=== PATIENT | male | born 1985 | race Caucasian/White ===

== ENCOUNTER 2019-06-05 14:47 | Emergency (ER) | payer OTHER ==
[~2019-06-05] VITALS: Ht 167.6 cm; Wt 64.9 kg
[2019-06-05] MEDS ORDERED: IV NORMAL SALINE 1,000ML 1,000 ML IV SCH (15:01)
--- NOTE | 2019-06-05 15:14 | PHYS DOC ---
Past History Past Medical History: No Pertinent History Past Surgical History: No Surgical History Alcohol Use: Occasionally Drug Use: None Adult General Chief Complaint Chief Complaint: HEADACHE HPI HPI Patient is a 34-year-old male who presents with complaint of headache that started at about 11:00 this morning. Patient states that pain rapidly worsened and he developed a few episodes of vomiting. He denies any visual changes but does complain of photophobia. Patient states that headache is worsened with movements. He states that nothing is improving the headache. He rates pain as severe. He describes it as a severe ache in his frontal and bilateral temporal region.[] Review of Systems Review of Systems Constitutional: Denies fever or chills [] Eyes: Denies change in visual acuity, redness, or eye pain [] Respiratory: Denies cough or shortness of breath [] Cardiovascular: No additional information not addressed in HPI [] Musculoskeletal: Denies back pain or joint pain [] Neurologic: Complains of headache without focal weakness or sensory changes [] All other systems were reviewed and found to be within normal limits, except as documented in this note. Current Medications Current Medications Current Medications Medications (Trade) Dose Ordered Sig/Álvaro Start Time Stop Time Status Last Admin Dose Admin Diphenhydramine HCl (Benadryl) 25 mg 1X ONCE 06/05/19 15:30 06/05/19 15:31 Fentanyl Citrate (Fentanyl 2ml Vial) 50 mcg 1X ONCE 06/05/19 15:30 06/05/19 15:31 Ketorolac Tromethamine (Toradol 30mg Vial) 30 mg 1X ONCE 06/05/19 15:30 06/05/19 15:31 Metoclopramide HCl (Reglan Vial) 10 mg 1X ONCE 06/05/19 15:30 06/05/19 15:31 Sodium Chloride 1,000 ml @ 1,000 mls/hr Q1H 06/05/19 15:01 06/05/19 16:00 Sumatriptan Succinate (Imitrex) 6 mg 1X ONCE 06/05/19 15:30 06/05/19 15:31 Allergies Allergies Allergies Coded Allergies Type Severity Reaction Last Updated Verified No Known Drug Allergies 06/05/19 No Physical Exam Physical Exam Constitutional: Well developed, well nourished, in mild distress, non-toxic appearance. [] HENT: Normocephalic, atraumatic, bilateral external ears normal, oropharynx moist, no oral exudates, nose normal. [] Eyes: PERRLA, EOMI, conjunctiva normal, no discharge. [] Neck: Normal range of motion, no tenderness, supple, no stridor. [] Cardiovascular:Heart rate regular rhythm, no murmur [] Lungs & Thorax: Bilateral breath sounds clear to auscultation [] Abdomen: Bowel sounds normal, soft, no tenderness. [] Skin: Warm, dry, no erythema, no rash. [] Extremities: No tenderness, no cyanosis, no clubbing, ROM intact, no edema. [] Neurologic: Alert and oriented X 3, normal motor function, normal sensory fun ction, no focal deficits noted. [] Current Patient Data Vital Signs Vital Signs Date Time Temp Pulse Resp B/P (MAP) Pulse Ox O2 Delivery O2 Flow Rate FiO2 06/05/19 15:05 97.8 60 16 100 Room Air EKG EKG [] Radiology/Procedures Radiology/Procedures [] Course & Med Decision Making Course & Med Decision Making Pertinent Labs and Imaging studies reviewed. (See chart for details) Patient moved to room upon arrival was evaluated by your medical staff after which an IV was established and blood work drawn. A migraine cocktail was given to patient and patient reevaluated at 4:20 PM. Patient indicates that headache is pretty much gone at this time. Dragon Disclaimer Dragon Disclaimer This electronic medical record was generated, in whole or in part, using a voice recognition dictation system. Departure Departure: Impression: Primary Impression: Migraine headache Disposition: 01 HOME, SELF-CARE Condition: STABLE Referrals: PCP,NO (PCP) Patient Instructions: Migraine Headache Scripts Ondansetron Hcl (ZOFRAN) 4 Mg Tablet 4 MG PO Q6HRS PRN for NAUSEA, #12 TAB Prov: TATUM DOMINGUEZ Jr. DO 06/05/19 Sumatriptan Succinate (IMITREX) 100 Mg Tablet 1 TAB PO UD PRN for HEADACHE, #9 TAB Prov: TATUM DOMINGUEZ Jr. DO 06/05/19 Problem Qualifiers Primary Impression: Migraine headache Migraine type: without aura Status migrainosus presence: without status migrainosus Intractability: not intractable Qualified Codes: G43.009 - Migraine without aura, not intractable, without status migrainosus TATUM DOMINGUEZ Jr. DO Jun 05, 2019 15:14
[2019-06-05] MEDS ORDERED: ONDANSETRON PF 4 MG/2 ML VIAL. ONE (15:18)
[2019-06-05 15:23] LABS: CALCIUM 10.1 mg/dL (8.5-10.1); CREATININE 0.9 mg/dL (0.7-1.3); GFR 96.6; POTASSIUM 3.9 mmol/L (3.5-5.1)
[2019-06-05] MEDS ORDERED: METOCLOPRAMIDE HCL 10 MG/2 ML VIAL. IV ONE (15:30)
[2019-06-05] MEDS ORDERED: diphenhydrAMINE 50 MG/ML VIAL IVP ONE (15:30)
[2019-06-05] MEDS ORDERED: KETOROLAC 30 MG/ML VIAL. IV ONE (15:30)
[2019-06-05] MEDS ORDERED: SUMAtriptan SUCC 6 MG/0.5 ML VIAL SQ ONE (15:30)
[2019-06-05 15:37] LABS: BASO # 0.1 x10^3/uL (0.0-0.2); BASO % 1 % (0-3); EOS % 0 % (0-3); HEMOGLOBIN 15.8 g/dL (13.0-17.5); LYMPH # 1.6 x10^3/uL (1.0-4.8); LYMPH % 15 % (24-48); MEAN CORPUSCULAR HEMOGLOBIN 31 pg (25-35); MEAN CORPUSCULAR HGB CONC 34 g/dL (31-37); MEAN CORPUSCULAR VOLUME 93 fL (79-100); MONO # 0.5 x10^3/uL (0.0-1.1); MONO % 5 % (0-9); NEUT # 8.2 x10^3uL (1.8-7.7); NEUT % 79 % (31-73); PLATELET COUNT 273 x10^3/uL (140-400); RED BLOOD COUNT 5.06 x10^6/uL (4.30-5.70); RED CELL DISTRIBUTION WIDTH 13.7 % (11.5-14.5); WHITE BLOOD COUNT 10.3 x10^3/uL (4.0-11.0)
[2019-06-05] MEDS ORDERED: SUMA100T3 PO (16:27)
[2019-06-05] MEDS ORDERED: ONDA4TAB7 PO (16:27)
[2019-06-05 16:37] VITALS: BP 139/86
== END 2019-06-05 16:43 | disposition home or self-care (01) ==
LOC: ER 14:47
DX: G43.009 Migraine without aura, not intractable, without status migrainosus (principal); R11.11 Vomiting without nausea
CPT/HCPCS: 36415; 80048; 85025; 96361; 96372; 96374; 96375; 99284; J1200; J1885; J2765; J3010; J3030; J7030

== ENCOUNTER 2019-08-29 12:51 | Emergency (ER) | payer OTHER ==
[~2019-08-29 12:51] MED LIST: ONDA4TAB7 PO; SUMA100T3 PO
[2019-08-29 13:08] VITALS: BP 142/94
--- NOTE | 2019-08-29 13:34 | PHYS DOC ---
Past History Past Medical History: No Pertinent History Past Surgical History: No Surgical History Alcohol Use: None Drug Use: None Adult General Chief Complaint Chief Complaint: LOWER EXT PAIN HPI HPI Patient is a 34-year-old male complains of left thigh pain. Patient was in [place] [employer] [place] over the weekend, fell, increasing bruising, increasing pain and stiffness. No new trauma. No numbness or tingling. No relief with previous treatment to include NSAIDs and oral steroids. Patient reports the pain is mild to moderate in intensity. No difficulty breathing. No lower leg swelling.[] Review of Systems Review of Systems Constitutional: Denies fever or chills [] Eyes: Denies change in visual acuity, redness, or eye pain [] HENT: Denies nasal congestion or sore throat [] Respiratory: Denies cough or shortness of breath [] Cardiovascular: No chest pain or palpitations[] GI: Denies abdominal pain, nausea, vomiting, bloody stools or diarrhea [] : Denies dysuria or hematuria [] Musculoskeletal: Denies back pain, see history of present illness[] Integument: Denies rash or skin lesions [] Neurologic: Denies headache, focal weakness or sensory changes [] Endocrine: Denies polyuria or polydipsia [] All other systems were reviewed and found to be within normal limits, except as documented in this note. Allergies Allergies Allergies Coded Allergies Type Severity Reaction Last Updated Verified No Known Drug Allergies 06/05/19 No Physical Exam Physical Exam Constitutional: Well developed, well nourished, no acute distress, non-toxic appearance. [] HENT: Normocephalic, atraumatic, bilateral external ears normal, oropharynx moist, no oral exudates, nose normal. [] Eyes: PERRLA, EOMI, conjunctiva normal, no discharge. [] Neck: Normal range of motion, no tenderness, supple, no stridor. [] Cardiovascular:Heart rate regular rhythm, no murmur [] Lungs & Thorax: Bilateral breath sounds clear to auscultation [] Abdomen: Bowel sounds normal, soft, no tenderness, no masses, no pulsatile masses. [] Skin: Warm, dry, no erythema, no rash. [] Back: No tenderness, no CVA tenderness. [] Extremities: Left thigh has bruising both lateral and as well as the medial aspect proximally. Decreased active range of motion at the knee secondary to discomfort in the thigh. Full active range of motion at the thigh. Patient is distally neurovascularly intact. There is no calf swelling or tenderness. A joint above and joined below were evaluated and were normal. Patient had a stable pelvis in 3 dimensions. The other 3 extremities show: No tenderness, no cyanosis, no clubbing, ROM intact, no edema. [] Neurologic: Alert and oriented X 3, normal motor function, normal sensory function, no focal deficits noted. [] Psychologic: Affect normal, judgement normal, mood normal. [] Current Patient Data Vital Signs Vital Signs Date Time Temp Pulse Resp B/P (MAP) Pulse Ox O2 Delivery O2 Flow Rate FiO2 08/29/19 13:08 98.6 84 18 99 Room Air EKG EKG [] Radiology/Procedures Radiology/Procedures EXAM: Left hip, 2 views; pelvis, single view. HISTORY: Fall. COMPARISON: None. FINDINGS: A frontal view the pelvis and 2 views of the left hip are obtained. There is no fracture, dislocation or subluxation. There is a small left os acetabulum. There is a suspected bone island within the right iliac bone. IMPRESSION: No acute osseous finding.[] Course & Med Decision Making Course & Med Decision Making Pertinent Labs and Imaging studies reviewed. (See chart for details) ED course: Patient arrived, was placed in bed, and tolerated exam well. Patient was transferred to and from radiology with any consultations. After return the imaging findings, these were discussed with the patient who voiced understanding. All questions were answered. Patient was discharged in improved condition. Medical decision making: There is no evidence of a fracture or dislocation. No evidence of a DVT. There is no evidence of calcium formation from the hematoma. Believe this to be a hematoma from falling during his [place].[] Dragon Disclaimer Dragon Disclaimer This electronic medical record was generated, in whole or in part, using a voice recognition dictation system. Departure Departure: Impression: Primary Impression: Hematoma of left thigh Disposition: HOME, SELF-CARE Condition: IMPROVED Referrals: PCP,UNKNOWN (PCP) Patient Instructions: Hematoma Additional Instructions: Follow-up with your primary care clinic. You may need to have physical therapy provide ultrasound therapy to help break up the hematoma. Wear compression tights to help with pain and swelling. Take the pain medication as prescribed. Return to the ER if worsening pain, weakness, or any other concerns. Scripts Tramadol Hcl (TRAMADOL HCL) 50 Mg Tablet 50 MG PO PRN Q6HRS PRN for PAIN, #20 TAB Prov: EMMA ESCOTO DO 08/29/19 Meloxicam (MELOXICAM) 7.5 Mg Tablet 7.5 MG PO DAILY for PAIN, #20 TAB Prov: EMMA ESCOTO DO 08/29/19 Problem Qualifiers Primary Impression: Hematoma of left thigh Encounter type: initial encounter Qualified Codes: S70.12XA - Contusion of left thigh, initial encounter EMMA ESCOTO DO Aug 29, 2019 13:34
--- NOTE | 2019-08-29 13:41 | RAD ---
EXAM: Left hip, 2 views; pelvis, single view. HISTORY: Fall. COMPARISON: None. FINDINGS: A frontal view the pelvis and 2 views of the left hip are obtained. There is no fracture, dislocation or subluxation. There is a small left os acetabulum. There is a suspected bone island within the right iliac bone. IMPRESSION: No acute osseous finding. Electronically signed by: Viridiana Beltran MD (08/29/2019 1:38 PM) [facility]
[2019-08-29] MEDS ORDERED: TRAM50TA PO (13:48)
[2019-08-29] MEDS ORDERED: MELO7.5T29 PO (13:48)
== END 2019-08-29 13:51 | disposition home or self-care (01) ==
LOC: ER 12:51
DX: S70.12XA Contusion of left thigh, initial encounter (principal); W18.39XA Other fall on same level, initial encounter; Y93.02 Activity, running; Y92.89 Other specified places as the place of occurrence of the external cause; Y99.8 Other external cause status
CPT/HCPCS: 73502; 73552; 99284